=== PATIENT | female | born 1990 | race Caucasian/White ===

== ENCOUNTER → 2023-02-19 14:34 | Outpatient (CLI) | payer OTHER, SELFPAY ==
[2023-02-20 14:58] LABS: Varicella IgG Antibody 431 index (Immune >165)
== END ==
PROVIDERS: Referring Provider Specialist; Visit Provider Specialist
DX: Z34.02 Encounter for supervision of normal first pregnancy, second trimester (principal)
CPT/HCPCS: 36415; 86787

== ENCOUNTER → 2023-02-21 16:32 | Outpatient (CLI) | payer OTHER, SELFPAY ==
--- NOTE | 2023-02-21 16:33 | DI.US.S_ITS ---
PROCEDURE: US OB >= 14 WEEKS FETUS INDICATIONS: ANATOMY OUTSIDE/PRIOR DATING DATA: Last menstrual period (LMP): Unknown. The calculations are made using the working ISAURA of 06/22/2023. TECHNIQUE: Real-time scanning was performed of the fetus, with image documentation and biometric measurements. COMPARISON: None. FINDINGS: General: A single living intrauterine gestation is present. Presentation: Vertex. Placenta: Placental position is anterior , without previa. Amniotic fluid index: 16.9 cm, normal range is 5-24 cm. Single deepest vertical pocket is 5.4 cm. heart rate: 147 beats per minute. Maternal cervical canal: 4 cm long. Normal lower limit is 2.5 cm. biometrics: Biparietal diameter: 5.8 cm, 23 weeks 5 days Head circumference: 20.9 cm, 23 weeks 0 days Abdominal circumference: 18.3 cm, 23 weeks 1 day Femur length: 4.2 cm, 23 weeks 5 days Clinically estimated gestational age: 22 weeks 5 days Composite gestational age from present scan: 23 weeks 3 days Estimated weight and percentile: 588 g, 75th percentile Anatomic survey: Neuro: Ventricles are non-dilated at less than 10 mm. Cisterna magna is normal at 3-11 mm. Cerebellum is normal in size and morphology. Nuchal skin fold: Normal at less than 6 mm between 14-21 weeks gestational age. Face: Nose and lips, facial profile are normal. Spine: No evidence for spina bifida. Heart: 4-chambered heart is present, with normal ventricular outflow tracts. Diaphragm: Diaphragm is intact. Stomach: Left-sided stomach is present. Kidneys: No hydronephrosis. Normal is less than 5 mm in 2nd trimester, less than 7 mm in 3rd trimester. Cord: 3-vessel cord has orthotopic insertion. Bladder: Normal in size. Extremities: All 4 extremities identified. IMPRESSION: 1. Single living intrauterine demonstrating appropriate interval growth with estimated weight at the 75th percent. 2. anatomic survey within normal limits. We strive to produce accurate, complete, and clear reports of imaging services. To assist us in improving patient care, this report was composed using standard report templates and voice recognition software. Therefore, it may contain abnormal punctuation, insertions and/or omissions. Occasional wrong-word or sound-alike substitutions may occur. Though we review the report and make efforts to correct it, we do recommend that the report be read carefully in proper context to recognize any text inaccuracies. Dictated by: Sebas Bella M.D. on 02/22/2023 at 2:26 Approved by: Sebas Bella M.D. on 02/22/2023 at 2:51
== END ==
PROVIDERS: Referring Provider Specialist; Visit Provider Specialist
DX: Z34.02 Encounter for supervision of normal first pregnancy, second trimester (principal); Z3A.23 23 weeks gestation of pregnancy
CPT/HCPCS: 76811

== ENCOUNTER → 2023-03-22 08:42 | Outpatient (CLI) | payer OTHER, SELFPAY ==
[2023-03-22 12:41] LABS: Hematocrit 35.3 % (36-46); Hemoglobin 12.1 g/dL (12.0-16.0)
[2023-03-22 13:08] LABS: GTT (PREG) 1 Hour PP 50gm Dose 110 mg/dL (76-139)
== END ==
PROVIDERS: Referring Provider Specialist; Visit Provider Specialist
DX: Z34.82 Encounter for supervision of other normal pregnancy, second trimester (principal); Z3A.26 26 weeks gestation of pregnancy
CPT/HCPCS: 36415; 82950; 85014; 85018

== ENCOUNTER → 2023-05-28 15:20 | Outpatient (CLI) | payer OTHER, SELFPAY ==
[2023-05-29 14:53] LABS: Strep Grp B PCR POS for Grp B Strep
== END ==
PROVIDERS: Visit Provider Specialist
DX: Z34.03 Encounter for supervision of normal first pregnancy, third trimester (principal); Z3A.36 36 weeks gestation of pregnancy
CPT/HCPCS: 87653

== ENCOUNTER 2023-06-05 17:19 | Inpatient (IN) | payer OTHER, SELFPAY ==
[2023-06-05] MEDS: AMPICILLIN 2,000 MG in SODIUM CHLORIDE 0.9% 100 ML 200 MG IV (19:15)
[2023-06-05] MEDS: LACTATED RINGERS 1,000 ML 100 ML IV (19:15)
[2023-06-05 19:21] LABS: Add Manual Diff / Slide Review NO; Basophils Absolute Auto 100 /uL (0-100); Basophils Percent Auto 0.4 % (0-2); Eosinophils Absolute Auto 200 /uL (0-450); Eosinophils Percent Auto 1.2 % (2-4); Hematocrit 38.2 % (36-46); Hemoglobin 13.2 g/dL (12.0-16.0); Lymphocytes Absolute Auto 2100 /uL (1100-4500); Lymphocytes Percent Auto 13.4 % (25-40); Mean Corpuscular HGB Conc 34.5 % (30-36); Mean Corpuscular Hemoglobin 31.8 PG (26-34); Mean Corpuscular Volume 92.1 fL (80-100); Monocytes Absolute Auto 1100 /uL (0-900); Monocytes Percent Auto 6.9 % (3-14); Neutrophils Absolute Auto 12000 /uL (1500-7000); Neutrophils Percent Auto 78.1 % (50-75); Platelet Count 290 X10^3/uL (150-400); Red Blood Cell Count 4.14 X10^6/uL (4.0-5.2); Red Cell Distribution Width 13.2 % (11.6-14.8); White Blood Cell Count 15.3 X10^3/uL (4.5-11.0)
[2023-06-05 19:31] VITALS: BP 126/61
--- NOTE | 2023-06-05 21:45 | P.HPOB_ITS ---
OB HPI Date/Time Date of admission: 06/05/23 Date Patient Seen: 06/05/23 Time Patient Seen: 21:30 History of Present Condition Chief complaint: LABOR : 1 Para: 0 Estimated Date of Delivery: 06/22/23 Estimated Gestational Age (weeks): 37.4 Narrative: Sandra Oconnor is a 33 year old female at 37.4 weeks gestation, dating by LMP, concordant with 12 week US. She felt a large gush of clear/pinkish fluid at 1609, has continued to leak clear fluid since, and appeared grossly ruptured when she presented to the hospital. Contractions started in her low back about 5 min prior to ROM. She has had an uncomplicated , receiving care in [place] until her 22 week visit when she transferred to the OBs at [facility]. She is accompanied by her partner Bertin and her mom is on way. She declines a cervical exam by CNM at this time. Adam does not want to begin cervical ripening or pitocin augmentation at this time. Wants to see what her body can do. Will probably start medication when her mom arrives from the airport, hopefully around midnight. Consents to our plan to begin with buccal misoprostol. Indications Indication for induction OB: other (PROM) History of Present care: good care, initiated at week # (12) and number of visits (10) Dating criteria: LMP confirmed by 1st trimester US Ultrasounds: normal 1st trimester US and normal mid trimester US Obstetrical complications: none Medical complications: none Preadmission Labs Blood type: A (+) positive -: Antibody screen: negative, Cystic fibrosis screen: negative, GBS status: positive, HBsAG: negative, HIV: negative and RPR/VDLR: negative -: Chlamydia screen: not detected and Gonorrhea screen: not detected -: Rubella: immune and Varicella: immune HCT: 36.9 HCAB: negative PAP: Normal Cell-free DNA: Normal CFFD by [employer] including 22q11.2 deletion syndrome and negative carrier screening (CF, SMA, Fragile X, DMD) Urine: positive (12/23/22) for lactobacillus 1 hr GTT: 110 Prior (ies) History: None Evaluation Evaluation Baseline heart rate: 120 Variability: Moderate (11-25) monitor accelerations: Present Monitor Decelerations: Absent Contraction Frequency (minutes): 5 (irregular) Uterine Contraction Intensity: Mild Status: Category l Dilation (cm): 0.5 Effacement (%): 50 Dilation: Closed Effacement: 40-50% station: -1 Position of cervix: posterior Consistency: medium (estimated from RN exam) Gardner score: 4 [facility] Medical History Concussion (~2016) Surgical History [place] teeth extracted Social History marital status: unmarried,living together number of children: 0 household members: significant other lives independently: Yes caregiver/support person: No housing: apartment pets and animals: Yes (2 cats, s/o manages litter boxes) education level: college (bachelor's degree) occupational status: employed (active duty, 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[employer])) current occupational exposures/hazards: No special ephraim needs: No travel history: recent (domestic only) seatbelt use: always water heater temp set < 120 deg: Yes working smoke detector in home: Yes fire extinguisher in home: Yes carbon monox detector in home: Yes firearms in home: Yes firearms unloaded and locked: Yes do you feel safe at home: Yes Smoking Status: Never smoker second hand exposure: No alcohol intake: former (1-2/week when not ) substance use type: does not use during the past year weight has: remained stable well-balanced diet: daily or most days daily servings fruits/ve-4 caffeine: Yes Type(s) of exercise: walking, weight lifting, other (hiking) and running frequency: 3-4 times per week Meds Home Medications and Allergies Home Medications Medication Instructions Recorded Confirmed Type cetirizine 10 mg tablet (All Day 10 mg PO DAILY PRN Allergy Symptoms 02/07/23 06/05/23 History Allergy (cetirizine)) prenat.vits,lacey,[id number] 1 tab PO DAILY 02/07/23 06/05/23 History Allergies Allergy/AdvReac Type Severity Reaction Status Date / Time No Known Drug Allergies Allergy Unverified 06/04/23 09:29 Review of Systems Review of Systems Narrative: Negative except as mentioned in HPI. OB Exam Vital signs Blood Pressure: 126/61 Pulse Rate: 74 Respiratory Rate: 16 Temperature: 36.6 F HENMT Head: normal to inspection Eyes General: appearance normal, both eyes and all related structures Resp Effort & Inspection: normal respiratory effort Auscultation: clear to auscultation bilaterally Cardio Rate: regular rate Rhythm: regular rhythm Heart Sounds: S1 normal and S2 normal Extremities Lower extremity: Yes normal to inspection GI Palpation: Yes soft and Yes other (gravid) Objective Labs 06/05/23 18:50 Labs: Laboratory Results - last 24 hr 06/05/23 06/05/23 18:50 18:50 WBC 15.3 H RBC 4.14 Hgb 13.2 Hct 38.2 MCV 92.1 MCH 31.8 MCHC 34.5 RDW 13.2 Plt Count 290 Neut % (Auto) 78.1 H Lymph % (Auto) 13.4 L [place] % (Auto) 6.9 Eos % (Auto) 1.2 L Baso % (Auto) 0.4 Neut # (Auto) 97736 H Lymph # (Auto) 2100 [place] # (Auto) 1100 H Eos # (Auto) 200 Baso # (Auto) 100 Blood Type A Positive Antibody Screen Negative Assessment and Plan Assessment and Plan Assessment and Plan narrative: A: 33yo at 37.4wks PROM Early labor Rh positive GBS positive P: Admit to center Antibiotics for GBS prophylaxis Discussed risks and benefits of misoprostol, gonzalez balloon and pitocin as induction agents. Recommend starting wt misoprosotol for cervical ripening. Reviewed risks of expectant management with GBS, especially risk for infection in combination with her WBC. Recommend induction now. Regular diet monitoring per unit policy. Will do intermittent monitoring hourly until medications initiated.
[2023-06-05 22:29] VITALS: BP 126/61; PULSE 74; RESP 16; TEMP 2.6; TEMP 36.6
[2023-06-05] MEDS: AMPICILLIN 1,000 MG in SODIUM CHLORIDE 0.9% 100 ML 200 MG IV (23:05)
[2023-06-05] MEDS: miSOPROStoL 25 MCG TABLET 50 MCG PO (23:40)
[2023-06-06] MEDS: AMPICILLIN 1,000 MG in SODIUM CHLORIDE 0.9% 100 ML 200 MG IV ×2 (03:32→07:20)
[2023-06-06] MEDS: miSOPROStoL 25 MCG TABLET 50 MCG PO (03:41)
[2023-06-06] MEDS: fentaNYL 100 MCG/2 ML INJ IV ×2 (06:29→06:47)
[2023-06-06] MEDS: ONDANSETRON 4 MG/2 ML INJ IV (06:29)
[2023-06-06] MEDS: LACTATED RINGERS 1,000 ML 100 ML IV (07:38)
--- NOTE | 2023-06-06 08:15 | P.PCN_ITS ---
Peripheral Nerve Block Note Pre-Procedure Reason for block: Peripheral nerve block performed for surgical anesthesia (Labor Epidural) Pre-procedure checklist: Patient examined and chart reviewed, Risks, benefits, alternatives of block discussed, questions answered, Verification of anti- coagulation status, Site confirmed, Timeout performed and Standard ASA monitors applied Consent obtained from: Patient Procedure Date of procedure: 06/06/23 Start Time: 08:16 End Time: 09:39 Performed by: Afshan Heck Location: Other (Labor and Delivery room 7) Position: Sitting (supported by ) Sterile Technique: Sterile barrier maintained, Sterile gloves, Mask, Sterile drapes and Chloraprep (chloraprep allowed to dry while tray prepared) Skin Wheal: Lidocaine 1% (SQ to needle depth) mL: 3 Gauge: 25 Equipment Single injection - Needle brand, gauge, length: Celtaxsys 17g needle 3.5 inch Medications Medications - enter concentration (%) & mL in comment field: Bupivacaine (fentanyl 2mcg/ml 0.1% bupivicaine) and Lidocaine (2% 4 ml with fentanyl 100mcg) Test Dose: Negative (lidocaine 1.5% with epi 1:200,000 4 ml) Incremental aspiration prior to injection: No (Only prior to injection) Vital signs VS: 0726 128/62 96 20 100% 0735 104/58 93 18 100% 0745 124/60 91 16 99% Events Nerve Block Events: Procedure uneventful (07 timeout, 07 prep, 0723 local, 07 catheter placed, 0727 test dose, 0732 bolus dose, 0737 pump started.) and Other (local, then epidural needle times one and redirected times two with good ORION at 7cm, catheter threaded easily without paresthesia, needle removed intact. ORION without CSF or blood. Catheter at 12 cm and secured with sterile tegaderm and tape..)
--- NOTE | 2023-06-06 10:15 | PM.OBPNLAB ---
Date/Time Date Patient Seen: 06/06/23 Time Patient Seen: 05:15 Pain Control Pain control: tolerating well Comments: Adam is doing well, using movement and breathing to cope with contractions. VS: BP - 127/57 P - 93 RR - 21 T - 36.8C Pelvic Exam Dilation (cm): 3 Effacement (%): 80 station: 0 Amniotic membrane status: Ruptured (clear, pink) Comments: per RN exam Contractions Monitor mode: External Contraction frequency (min): 2 (2-3, coupling) Contraction duration (min): 1 Contraction pattern: Regular (with coupling) Contraction intensity: Moderate Status status: Category l Heart Rate Baseline: 130 Monitor Accelerations: Present Monitor Decelerations: Absent Monitor Variability: Moderate Assessment and Plan Assessment: induction ongoing Plan: continuous present management Comments: A: 33yo at 37.5wks Early labor Rh positive GBS positive FHR Cat 1 P: Encourage movement and rest Epidural PRN Continue antibiotics per protocol for GBS Will consider pitocin augmentation if contractions space out
--- NOTE | 2023-06-06 10:28 | PM.OBDS.1 ---
Discharge Providers Provider Date of admission: 06/05/23 17:19 Discharge Date: 06/07/23 Primary care physician: Doctor Thao MD Consults: 06/05/23 18:26 Consult to Anesthesiology Urgent Comment: Consulting Provider: Anesthesiologist Reason for consultation: Epidural 06/05/23 22:46 Consult to Anesthesiology Urgent Comment: Consulting Provider: Anesthesiologist Reason for consultation: Epidural 06/07/23 10:11 Consult to Biomedical Engineering Professor Routine Comment: Discharge provider: Charity Felder CNM, ARNP Summary Hospital Course Date Patient Seen: 06/07/23 Time Patient Seen: 07:05 Diagnoses: O80 Hospital Course: Adam came in after PROM for labor augmentation. NSVB after 2 misoprostol doses for cervical ripening. Intact perineum. . Peripartum Data Delivery Method: Natural Vaginal Laceration Description: Periurethral - 1st Degree Episiotomy description: None [place] 1: Gender: Male Disposition of : home Discharge Diagnosis (1) Normal first in third trimester: Status: Acute (2) Positive GBS test: Status: Acute (3) (normal spontaneous vaginal delivery): Status: Acute (4) Difficulty of mother performing : Status: Acute Status at Discharge Cognitive/behavioral status at discharge: oriented and calm Functional status at discharge: independent ambulation Overall status at discharge: patient is progressing back to baseline Time Spent with Patient Specific discharge activities: discharge teaching Objective Labs 06/05/23 18:50 Labs: Laboratory Results - last 24 hr 06/05/23 06/05/23 18:50 18:50 WBC 15.3 H RBC 4.14 Hgb 13.2 Hct 38.2 MCV 92.1 MCH 31.8 MCHC 34.5 RDW 13.2 Plt Count 290 Neut % (Auto) 78.1 H Lymph % (Auto) 13.4 L [place] % (Auto) 6.9 Eos % (Auto) 1.2 L Baso % (Auto) 0.4 Neut # (Auto) 28467 H Lymph # (Auto) 2100 [place] # (Auto) 1100 H Eos # (Auto) 200 Baso # (Auto) 100 Blood Type A Positive Antibody Screen Negative Exam Vital Signs (past 8 hours): BP: 107/81 HR: 94 bpm RR: 18/min T: 98.2 F temporal SpO2: 99% Other: Fundus firm at U, midline_ Lochia scant Perineum intact with minimal edema Discharge Plan Discharge Plan Patient Disposition: Home Discharge orders & Medications Prescriptions: Continued prenat.vits,lacey,[id number] Tablet 1 tab PO DAILY cetirizine [All Day Allergy (cetirizine)] 10 mg tablet 10 mg PO DAILY PRN (Reason: Allergy Symptoms) Follow up/Referrals: Doctor Osuna MD [Primary Care Provider] - (Please call OB office at to schedule a six week follow up. ) Bessy Marlow MD [Physician] - Diet/Activity/Treatments Diet: Diet as Tolerated and Regular Diet comment: increase hydration and fiber Activity: low savage for 2 weeks Cold/Heat Therapy: as needed Skin/Wound/Dressing Care Skin care: usual care; okay to soak perineum for healing Report to your healthcare provider any signs of infection, such as:: chills, fever, unusual drainage and unusual redness Visit Report/Discharge Packet Stand Alone Forms: Discharge: Care, Patient Portal/API Discharge Data Primary Care Provider: Doctor Thao Discharges patient from system. Discharge Date/Time: 06/07/23 13:20
--- NOTE | 2023-06-06 10:28 | PM.OBPRVD ---
Labor & Delivery Delivery date: 06/06/23 Cervical ripening method: per misoprostal protocol Delivery monitor: external FHT Route of delivery: L&D Laceration Description: Periurethral - 1st Degree Quantitative Blood Loss: 267 Anesthesia Type: Epidural Narrative: Labor progressed well after recieving two doses of misoprostol, the second at 0341. Adam felt the spontaneous urge to push at 0800 following placement of her epidural. She pushed effectively for an average 2nd stage. FHR was Cat 2 throughout 2nd stage. NSVB of baby boy at 0939, shoulders delivered easily. After delivering through bandelier cord, baby was placed on maternal abdomen when Adam was ready to receive him. Apgars 8/9. They remained skin to skin while cord was cut and placenta was delivered. Placenta delivered spontaneously with maternal efforts and appeared to be complete. 3 vessel cord clamped and cut by richard Denton at 10 minutes of life after cord pulsing had stopped. Unable to collect cord blood sample due to small volume remaining in umbilical cord. Perineum inspected and found to be intact. Shallow periurethral lacerations noted bilaterally. Blood loss measured and estimated loss is 267 mL. Mom and baby left stable and is being initiated. Adam and Bertin are thrilled to meet their baby boy. Birthweight 2634 g. Charity HALLP, CNM, IBCLC Baby 1: gender: Male Presentation: vertex Position: Left Occiput Anterior Placenta delivery description: Spontaneous Cord Vessel Description: 3 Vessels score (1 min): 8 score (5 min): 9 weight: 2634 kg Plan for aftercare: Routine care
[2023-06-06] MEDS: DERMOPLAST SPRAY 20% 60 ML 1 SPRAY TOP (13:41)
[2023-06-06] MEDS: KETOROLAC 30 MG/ML VIAL IV (13:42)
[2023-06-06] MEDS: IBUPROFEN 600 MG TABLET PO (20:01)
[2023-06-06] MEDS: ACETAMINOPHEN 325 MG TABLET 650 MG PO (20:03)
[2023-06-06] MEDS: LANOLIN OINT 7 GM 1 APPLIC TOP (20:04)
[2023-06-07] MEDS: IBUPROFEN 600 MG TABLET PO ×2 (01:57→11:15)
[2023-06-07] MEDS: ACETAMINOPHEN 325 MG TABLET 650 MG PO ×2 (01:57→11:15)
== END 2023-06-07 13:20 | disposition home or self-care (01) | DRG 807 ==
PROVIDERS: Admitting Provider Advanced Practice Midwife; Referring Provider Advanced Practice Midwife; Visit Provider Advanced Practice Midwife
DX: O42.02 Full-term premature rupture of membranes, onset of labor within 24 hours of rupture (principal); Z37.0 Single live birth; Z3A.37 37 weeks gestation of pregnancy; O99.824 Streptococcus B carrier state complicating childbirth; Z67.10 Type A blood, Rh positive
CPT/HCPCS: 36415; 59050; 59200; 84112; 85025; 86850; 86900; 86901; G0379; J0290; J1885; J2405; J3010